=== PATIENT | male | born 1960 | race Hispanic/Latino ===

== ENCOUNTER 2018-08-13 13:42 | Inpatient (IN) | payer MEDICAID ==
[2018-08-13 14:43] LABS: BASO # 0.1 K/uL (0.0-0.2); EOS # 0.1 K/uL (0.0-0.7); EOS % 0.8 % (0.0-4.0); HEMOGLOBIN 13.1 g/dL (12.0-18.0); LYMPH # 1.2 K/uL (1.0-4.3); LYMPH % 16.5 % (20.0-40.0); MEAN CELL VOLUME 93.3 fL (80.0-94.0); MEAN CORPUSCULAR HEMOGLOBIN 32.7 pg (27.0-31.0); MEAN CORPUSCULAR HGB CONC 35.1 g/dL (33.0-37.0); MEAN PLATELET VOLUME 7.3 fL (7.2-11.7); MONO # 0.7 K/uL (0.0-0.8); MONO % 10.2 % (0.0-10.0); NEUT % 71.5 % (50.0-75.0); NRBC % 0.1 % (0.0-2.0); RBC 4.02 Mil/uL (4.40-5.90)
[2018-08-13 14:50] LABS: URINE BILIRUBIN NEGATIVE (NEGATIVE); URINE BLOOD NEGATIVE (NEGATIVE); URINE CLARITY Clear (Clear); URINE COLOR Yellow (YELLOW); URINE GLUCOSE (UA) NORMAL (Normal); URINE LEUKOCYTE ESTERASE NEG Leu/uL (Negative); URINE PROTEIN 1+ mg/dL (NEGATIVE); URINE UROBILINOGEN NORMAL mg/dL (0.2-1.0)
--- NOTE | 2018-08-13 14:58 | C.PDOC ---
History Of Present Illness 58 y/o male presents to ED requesting detox from ETOH, states he drinks daily. He reports his last drink was 1/2 pint of vodka this morning. Patient denies nausea, vomiting, abdominak pain, tremors, SI/HI or any other complaints at this time. Time Seen by Provider: 08/13/18 13:51 Chief Complaint (Nursing): Substance Abuse History Per: Patient History/Exam Limitations: no limitations Current Symptoms Are (Timing): Still Present Suicide/Self Injury Attempted (Context): None Modifying Factor(s): Alcohol Severity: Moderate Past Medical History Reviewed: Historical Data, Nursing Documentation, Vital Signs Vital Signs: Last Vital Signs Temp 98.4 F 08/13/18 13:44 Pulse 92 H 08/13/18 13:44 Resp 18 08/13/18 13:44 BP 163/95 H 08/13/18 13:44 Pulse Ox 96 08/13/18 13:44 - Medical History PMH: No Chronic Diseases Surgical History: Appendectomy Family History: States: No Known Family Hx - Social History Hx Alcohol Use: Yes Hx Substance Use: No - Immunization History Hx Tetanus Toxoid Vaccination: No Hx Influenza Vaccination: Yes (2017) Hx Pneumococcal Vaccination: No Review Of Systems Constitutional: Negative for: Fever, Chills Cardiovascular: Negative for: Chest Pain Respiratory: Negative for: Cough, Shortness of Breath Gastrointestinal: Negative for: Nausea, Vomiting, Abdominal Pain Genitourinary: Negative for: Dysuria, Hematuria Skin: Negative for: Rash Psych: Positive for: Other (Substance abuse). Negative for: Suicidal ideation Physical Exam - Physical Exam Appears: Well, Non-toxic, No Acute Distress Skin: Warm, Dry, No Rash Eye(s): bilateral: Normal Inspection Oral Mucosa: Moist Neck: Supple Cardiovascular: Rhythm Regular Respiratory: Normal Breath Sounds, No Rales, No Rhonchi, No Wheezing Gastrointestinal/Abdominal: Normal Exam, Bowel Sounds, Soft, No Tenderness Neurological/Psych: Oriented x3 ED Course And Treatment - Laboratory Results Result Diagrams: 08/13/18 14:36 08/13/18 14:36 O2 Sat by Pulse Oximetry: 96 (RA) Pulse Ox Interpretation: Normal Progress Note: Blood work, UA, UDS ordered and reviewed. 3:25pm- Patient medically cleared. 4:18pm- Patient accepted by Dr. Russell for alcohol detox admission. Disposition - Disposition Disposition: HOSPITALIZED Disposition Time: 16:18 Condition: STABLE - Clinical Impression Clinical Impression: Alcohol use disorder, severe, dependence - Scribe Statement The provider has reviewed the documentation as recorded by the Chaitanya Blandon All medical record entries made by the Jenseniblindsey were at my direction and personally dictated by me. I have reviewed the chart and agree that the record accurately reflects my personal performance of the history, physical exam, medical decision making, and the department course for this patient. I have also personally directed, reviewed, and agree with the discharge instructions and disposition. Decision To Admit - Pt Status Changed To: Hospital Disposition Of: Inpatient - Admit Certification Admit to Inpatient:: After my assessment, the patient will require hospitalization for at least two midnights. This is because of the severity of symptoms shown, intensity of services needed, and/or the medical risk in this patient being treated as an outpatient. - InPatient: Physician Admission Certification: I certify that this patient requires 2 or more midnights of care for the following reason:: see notes - . Bed Request Type: Detox Admitting Physician: Khurram Russell Patient Diagnosis: Alcohol use disorder, severe, dependence
[2018-08-13 15:02] LABS: ALB/GLOB RATIO 1.5 (1.0-2.1); ALBUMIN 4.4 g/dL (3.5-5.0); ALT/SGPT 31 U/L (21-72); AST/SGOT 22 U/L (17-59); BLOOD UREA NITROGEN 14 mg/dL (9-20); GFR NON-AFRICAN AMERICAN > 60
[2018-08-13 15:12] LABS: BARBITURATES, UR NEGATIVE (NEGATIVE); BENZODIAZEPINES, UR NEGATIVE (NEGATIVE); OPIATES, UR NEGATIVE (NEGATIVE); PHENCYCLIDINE, UR NEGATIVE (NEGATIVE)
--- NOTE | 2018-08-13 16:25 | PCM.BM ---
<Betzy Pastrana - Last Filed: 08/13/18 16:24> Treatment Plan Problems - Problems identified on initial assessmt potiential for autonomic instability related to alcohol withdrawal Date Initiated: 08/13/18 Time Initiated: 16:25 Assessment reference: NA Status: Active Treatment assets and liabiliti Patient Assests: ADL independent, cognitively intact Patient Liabilities: substance abuse - Milieu Protocol Maintain good personal hygiene: daily Encourage regular showers, daily Remind patient to perform daily oral care, daily Assist patient to perform ADL's Maintain personal safety: every shift Educate patient to report safety concerns to staff, every shift Monitor environment for contraband/sharps Medication safety: Monitor for expected outcome, potential side effects: every shift, Assess barriers to learning: every shift, Assess readiness for medication education: every shift <Khurram Russell - Last Filed: 08/14/18 22:26> - Diagnosis (1) Alcohol use disorder, severe, dependence Status: Acute Interventions: 08/14/18 22:26 * Assess 7x/week regarding severity of withdrawal * Educate regarding risks, benefits, side effects and alternatives of medications * Use Motivational Interviewing for abstinence * Use CBT for relapse prevention * Medication management for withdrawal symptoms * Encourage medication assisted treatment * <Morelia Wallace - Last Filed: 08/15/18 09:40> Family Contact Family involvement: Valentinliy/SO not involved - Goals for Treatment Patient goals for treatment: Complete detox and transition to a long-term rehab. Discharge/Continuing Care - Education Needs Education Needs: Patient Medication, Patient Diagnosis/Disease Process, Patient Coping Skills, Patient Anger Management skills, Patient Placement options, Patient Community resources - Discharge Discharge Criteria: No longer exhibiting s/s of withdrawal, Reduction of target symptoms Discharge to:: Substance Abuse Rehab - Treatment Team Participation Patient/Family/SO Statement: 08/15/18 09:40 "I wanna go to the [facility] in [facility]--I'll walk there from here..." Discussed with Family/SO: No Was Patient/Family/SO present at Treatment Team Meeting: Yes
[2018-08-14] MEDS ORDERED: Naltrexone 25 MG TAB PO SCH (10:00)
[2018-08-14] MEDS: Multiple Vitamins Tab PO SCH (10:06)
--- NOTE | 2018-08-14 11:06 | PCM.PSYCH ---
Addendum entered and electronically signed by Khurram Russell MD 08/14/18 22:27: I attest that I have interviewed the pt and reviewed the chart and participated and agree with the following assessment and plan. Original Note: Initial Psychiatric Evaluation - Initial Psychiatric Evaluation Type of Admission: Voluntary Legal Status: Capacity Chief Complaint (in patient's own words): " I drink." History of Present Illness and Precipitating Events: Patient seen, chart reviewed, case discussed with staff. Mr. Hogan is a 58 year old male who was kicked out of [facility] on 08/12 for alcohol. He has been heavily drinking on/off for the last month while there. This is his first time at [facility], however has been to detox twice this year (Nov and Apr) as well as 1 month of rehab in [place]. He started drinking 12yo, but doesn't believe it became unmanageable until 48yo. He has gone into DTs before, but denies seizures. Denies current drug use, but admits to doing marijuana daily and cocaine every week until 15 years ago. Denies any tobacco use. 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 PMH: denies Psych: denies FamHx: Siblings all drink, brother 2/2 EtOH induced NC ED: BAL 123, UDS negative Current Medications: Active Medications Generic Name Dose Route Start Last Admin Trade Name Freq PRN Reason Stop Dose Admin Chlordiazepoxide 25 mg 08/13/18 18:00 08/14/18 06:49 Librium PO 08/17/18 17:59 25 mg Q6 WALTER Administration Taper Chlordiazepoxide 25 mg 08/13/18 17:31 Librium PO Q4H PRN Alcohol Withdrawal Folic Acid 1 mg 08/14/18 10:00 08/14/18 10:06 Folic Acid PO 1 mg DAILY WALTER Administration Hydroxyzine HCl 25 mg 08/14/18 09:49 Atarax PO Q4H PRN Anxiety Multivitamins 1 tab 08/14/18 10:00 08/14/18 10:06 Hexavitamin PO 1 tab DAILY WALTER Administration Naltrexone HCl 50 mg 08/14/18 11:00 08/14/18 11:00 Revia PO 50 mg DAILY WALTER Administration Thiamine HCl 100 mg 08/14/18 10:00 08/14/18 10:06 Vitamin B1 Tab PO 100 mg DAILY WALTER Administration Trazodone HCl 50 mg 08/13/18 17:31 Desyrel PO HS PRN Insomnia Past Psychiatric History - Past Psychiatric History Pertinent Medical Hx (Current Medical&Sleep Prob, Allergies): Allergies Allergy/AdvReac Type Severity Reaction Status Date / Time No Known Allergies Allergy Verified 08/13/18 13:48 No Known Home Med 08/13/18 Review of Systems - Psychiatric Psychiatric: Abnormal Sleep Pattern. absent: Auditory Hallucinations, Hallucinations, Homicidal Ideation, Suicidal Ideation, Visual Hallucinations Mental Status Examination - Personal Presentation Personal Presentation: Looks stated age - Affect Affect: Constricted - Motor Activity Motor Activity: Calm - Reliability in Providing Information Reliability in Providing Information: Fair - Speech Speech: Organized - Mood Mood: Neutral - Formal Thought Process Formal Thought Process: No Impairment - Cognitive Functions Orientation: Person, Place, Situation, Time Sensorium: Alert Attention/Concentration: Attentive Estimate of Intelligence: Average Judgement: Imparied, as evidence by: Poor judgement Memory: Recent intact, as evidence by: Ability to recall events of the day, Remote intact, as evidenced by: Abilit to recall sig. life events - Risk Risk: Withdrawal, Diminished functioning DSM 5 DX - DSM 5 DSM 5 Diagnosis: Alcohol use disorder - severe Alcohol withdrawal - Recommended/Plan of Treatment Treatment Recommendations and Plan of Treatment: Librium taper. Folic acid, MVI, thiamine. Started on Naltrexone. As needed medication. All risks, benefits, and alternatives of the meds discussed and patient agreed and understood. Attend group and activities. Supportive therapy and psychoeducation. NC for abstinence. CBT for relapse prevention. Encourage MAT. Wants to return to [facility]. 40 min Projected ELOS: 3 days - Smoking Cessation Smoking Cessation Initiated: No
[2018-08-15] MEDS: Multiple Vitamins Tab PO SCH (09:30)
--- NOTE | 2018-08-15 15:05 | PCM.PYCHPN ---
Psychiatric Progress Note - Psychiatric Progress Note Patient seen today, length of contact: 15 min Patient Chief Complaint: I am still withdrawing.' Problems Identified/Issues Discussed: Patient seen and evaluated, chart reviewed and discussed with the nurse. Supportive therapy and psychoeducation were given. Patient reports improvement in his mood than yesterday but still reports withdrawal symptoms including, cramps, nausea, anxiety and headaches. Patient re ports depressed mood but denies any suicidal ideation or homicidal ideation. He denies any auditory or visual hallucinations. He is tolerating the withdrawal medications and denies any side effects. Medication Change: Yes Medical Record Reviewed: Yes Mental Status Examination - Cognitive Function Orientation: Person, Place, Situation, Time Memory: Intact Attention: WNL Concentration: Poor Association: WNL Fund of Knowledge: Poor - Mood Mood: Neutral - Affect Affect: Constricted - Speech Speech: Soft - Formal Thought Process Formal Thought Process: No Impairment - Suicidal Ideation Suicidal Ideation: No - Homicidal Ideation Homicidal Ideation: No Goal/Treatment Plan - Goal/Treatment Plan Need for Continued Stay: Severe depression anxiety, Severe functional impairment Progress Toward Problem(s) and Goals/Treatment Plan: Alcohol use disorder - severe Alcohol withdrawal Librium taper. Folic acid, MVI, thiamine. Started on Naltrexone. As needed medication. All risks, benefits, and alternatives of the meds discussed and patient agreed and understood. Attend group and activities. Supportive therapy and psychoeducation. WA for abstinence. CBT for relapse prevention. Encourage MAT. [facility]. - Smoking Cessation Smoking Cessation Initiated: No
--- NOTE | 2018-08-16 08:21 | PCM.PYCHDC ---
Mental Status Examination - Mental Status Examination Orientation: Person Discharge Summary - Discharge Note Consultations:: List each consultation separately and include: 1. Reason for request. 2. Findings. 3. Follow-up Summary of Hospital Course include:: 1. Description of specific treatment plan utilized for patients during their course of treatmen. 2. Summarize the time- course for resolution of acute symptoms and/or regressed behaviors. 3. Describe issues identified and worked on during hospitalization. 4. Describe medication utilized. 5. Describe medical problems identified and treated. 6. Reassessment of suicide risk Summary of Hospital Course: He went to [facility] in [place]. - Diagnosis (1) Alcohol use disorder, severe, dependence Current Visit: Yes Status: Acute - Final Diagnosis (DSM 5) Condition upon Discharge: GOOD Disposition: HOME/ ROUTINE Prescriptions/Medication Reconciliation: Naltrexone [Revia] 50 mg PO DAILY #30 tab traZODone [Desyrel] 50 mg PO HS PRN #30 tab PRN Reason: Insomnia
[2018-08-16 08:33] VITALS: BP 151/90; PULSE 67; RESP 19; TEMP 98
[2018-08-16] MEDS: Multiple Vitamins Tab PO SCH (09:46)
[2018-08-17 05:48] VITALS: O2SAT 96
== END 2018-08-16 10:47 | disposition home or self-care (01) | DRG 751 ==
LOC: C.ER 13:42 → C.7D 16:18
PROVIDERS: ADMIT Psychiatry & Neurology Psychiatry; ATTEND Psychiatry & Neurology Psychiatry
PROC: HZ2ZZZZ Detoxification Services for Substance Abuse Treatment (ICD-10-PCS; principal; 2018-08-13)
PROC: HZ52ZZZ Individual Psychotherapy for Substance Abuse Treatment, Cognitive-Behavioral (ICD-10-PCS; 2018-08-13)
PROC: HZ59ZZZ Individual Psychotherapy for Substance Abuse Treatment, Supportive (ICD-10-PCS; 2018-08-13)
PROC: HZ56ZZZ Individual Psychotherapy for Substance Abuse Treatment, Psychoeducation (ICD-10-PCS; 2018-08-13)
PROC: HZ42ZZZ Group Counseling for Substance Abuse Treatment, Cognitive-Behavioral (ICD-10-PCS; 2018-08-13)
PROC: HZ46ZZZ Group Counseling for Substance Abuse Treatment, Psychoeducation (ICD-10-PCS; 2018-08-13)
PROC: GZHZZZZ Group Psychotherapy (ICD-10-PCS; 2018-08-13)
PROC: GZ58ZZZ Individual Psychotherapy, Cognitive-Behavioral (ICD-10-PCS; 2018-08-13)
PROC: GZ56ZZZ Individual Psychotherapy, Supportive (ICD-10-PCS; 2018-08-13)
DX: F10.230 Alcohol dependence with withdrawal, uncomplicated (principal); Y90.6 Blood alcohol level of 120-199 mg/100 ml; F41.8 Other specified anxiety disorders; G47.00 Insomnia, unspecified